=== PATIENT | male | born 1990 | race Caucasian/White ===

== ENCOUNTER 2022-05-02 12:03 | Emergency (ER) | payer OTHER ==
[2022-05-02] MEDS ORDERED: Ketorolac 30 MG/ML SDV IVPUSH ONE (12:22)
[2022-05-02] MEDS ORDERED: Acetaminophen 500 MG Tab PO ONE (12:22)
[2022-05-02] MEDS ORDERED: Sodium Chloride 0.9% 1,000 ML IV ONE ×2 (12:22→12:23)
[2022-05-02 12:55] LABS: BLOOD UREA NITROGEN,BUN 18 mg/dL (7.0-18.0); CARBON DIOXIDE,CO2 24.1 mmol/L (21.0-32.0); CHLORIDE,CL 102 mmol/L (98-107); GLUCOSE RANDOM 95 mg/dL (74-106); POTASSIUM,K 3.7 mmol/L (3.5-5.1); SODIUM,NA 138 mmol/L (136-148)
[2022-05-02 12:57] LABS: ESTIMATED GFR 93 mL/min (>60)
== END 2022-05-02 14:55 | disposition home or self-care (01) ==
LOC: MW.ED 12:03
DX: U07.1 COVID-19 (principal)
CPT/HCPCS: 36415; 71045; 80053; 81003; 83605; 83735; 84484; 85025; 86140; 87635; 93005; 96361; 96374; 99284; A9270; J1885; J7030; U0002